=== PATIENT | female | born 1995 | race American Indian/Alaskan Native ===

== ENCOUNTER 2017-02-22 00:20 | Emergency (ER) | payer MEDICAID ==
[2017-02-22 00:32] VITALS: BP 102/69; PULSE 86; TEMP 98.9; O2SAT 98
--- NOTE | 2017-02-22 00:40 | C.PDOC ---
History Of Present Illness 22 year old female presents to the ER with a complaint of hives to the chest, arms, and upper back since yesterday. Denies known allergens, SOB, or chest tightness. Time Seen by Provider: 02/22/17 00:40 Chief Complaint (Nursing): Abnormal Skin Integrity History Per: Patient History/Exam Limitations: no limitations Onset/Duration Of Symptoms: Days Current Symptoms Are (Timing): Still Present Quality Of Symptoms: Other (Hives) Recent travel outside of the [place]: No Past Medical History Reviewed: Historical Data, Nursing Documentation, Vital Signs Vital Signs: Last Vital Signs Temp 98.9 F 02/22/17 00:30 Pulse 86 02/22/17 00:30 Resp 14 02/22/17 00:30 BP 102/69 02/22/17 00:30 Pulse Ox 98 02/22/17 00:56 - Medical History PMH: No Chronic Diseases Family History: States: Unknown Family Hx - Social History Hx Alcohol Use: No Hx Substance Use: No - Immunization History Hx Tetanus Toxoid Vaccination: No Hx Influenza Vaccination: No Hx Pneumococcal Vaccination: No Review Of Systems Respiratory: Negative for: Shortness of Breath, Wheezing, Other (Chest tightness ) Skin: Positive for: Rash (Hives) Physical Exam - Physical Exam Appears: Non-toxic, No Acute Distress Skin: Warm, Dry, Rash (Diffuse hives to upper extremities, chest, and back) Head: Atraumatic, Normacephalic Eye(s): bilateral: Normal Inspection Oral Mucosa: Moist Tongue: Normal Appearing, No Swelling Lips: Normal Appearing, No Swelling Throat: Normal, No Other (Swelling) Neck: Normal, Supple Chest: Symmetrical, No Tenderness Cardiovascular: Rhythm Regular Respiratory: Normal Breath Sounds, No Rales, No Rhonchi, No Wheezing Neurological/Psych: Oriented x3, Normal Speech ED Course And Treatment O2 Sat by Pulse Oximetry: 98 (Room air) Pulse Ox Interpretation: Normal Progress Note: Benadryl, pepcid, and prednisone administered. Patient reports improvement of rash, she is resting comfortably in no distress. Will discharge home with instructions to follow up with PMD. Disposition Counseled Patient/Family Regarding: Diagnosis, Need For Followup, Rx Given - Disposition Referrals: Keyur MG,MD Boubacar [Medical Doctor] - Disposition: HOME/ ROUTINE Disposition Time: 01:02 Condition: STABLE Additional Instructions: Take all meds as prescribed Follwo up with PMD Return to ER if difficulty breathing , facial or tongue swelling or worse Prescriptions: Cetirizine HCl [Zyrtec] 10 mg PO DAILY #14 capsule DiphenhydrAMINE [Benadryl] 50 mg PO HS #14 cap Famotidine [Pepcid] 20 mg PO DAILY #7 tab predniSONE [Prednisone] 40 mg PO DAILY #8 tab Instructions: Urticaria (ED) Forms: [employer] (Frisian) - Clinical Impression Clinical Impression: Urticaria - PA / TRIAL PARALEGAL / Resident Statement MD/DO has reviewed & agrees with the documentation as recorded. - Scribe Statement The provider has reviewed the documentation as recorded by the Scribarminda Romeo All medical record entries made by the Tamraibarminda were at my direction and personally dictated by me. I have reviewed the chart and agree that the record accurately reflects my personal performance of the history, physical exam, medical decision making, and the department course for this patient. I have also personally directed, reviewed, and agree with the discharge instructions and disposition.
[2017-02-22 01:08] VITALS: RESP 20
== END 2017-02-22 01:08 | disposition home or self-care (01) ==
LOC: C.ER 00:20
DX: L50.9 Urticaria, unspecified (principal)

== ENCOUNTER 2017-05-22 19:11 | Emergency (ER) | payer MEDICAID ==
[2017-05-22 19:27] VITALS: BP 123/75; PULSE 92; RESP 22; TEMP 97.9; O2SAT 98
[2017-05-22 19:43] LABS: HCG,QUALITATIVE URINE NEGATIVE (NEGATIVE)
[2017-05-22 19:46] LABS: SQUAMOUS EPITHIAL 6 /hpf (0-5); URINE BACTERIA FEW (<OCC); URINE BILIRUBIN NEGATIVE (NEGATIVE); URINE BLOOD 2+ (NEGATIVE); URINE CLARITY Hazy (Clear); URINE COLOR Yellow (YELLOW); URINE GLUCOSE (UA) NORMAL (Normal); URINE LEUKOCYTE ESTERASE 3+ Leu/uL (Negative); URINE PROTEIN NEGATIVE (NEGATIVE)
--- NOTE | 2017-05-22 20:12 | C.PDOC ---
History Of Present Illness 22 year old female presents to the ED for evaluation of a small painful lesion noted to her left flank area which she noticed around 3 days ago. Patient also reports increased urinary frequency. She denies fever, chills. Time Seen by Provider: 05/22/17 20:03 Chief Complaint (Nursing): Abdominal Pain History Per: Patient History/Exam Limitations: no limitations Onset/Duration Of Symptoms: Days Current Symptoms Are (Timing): Still Present Radiation Of Pain To:: Flank (left ) Quality Of Discomfort: "Pain" Associated Symptoms: Urinary Symptoms (urinary frequency ). denies: Fever, Chills Additional History Per: Patient Abnormal Vaginal Bleeding: No Past Medical History Reviewed: Historical Data, Nursing Documentation, Vital Signs Vital Signs: Last Vital Signs Temp 97.9 F 05/22/17 19:24 Pulse 92 H 05/22/17 19:24 Resp 22 05/22/17 19:24 BP 123/75 05/22/17 19:24 Pulse Ox 98 05/22/17 21:37 - Medical History PMH: No Chronic Diseases Surgical History: No Surg Hx Family History: States: Unknown Family Hx - Social History Hx Alcohol Use: No Hx Substance Use: No - Immunization History Hx Tetanus Toxoid Vaccination: No Hx Influenza Vaccination: No Hx Pneumococcal Vaccination: No Review Of Systems Constitutional: Negative for: Fever, Chills Genitourinary: Positive for: Frequency Skin: Positive for: Other (small painful lesion to left flank area ) Physical Exam - Physical Exam Appears: Non-toxic, No Acute Distress, Other (morbidly obese ) Skin: Normal Color, Warm, Dry Head: Atraumatic, Normacephalic Eye(s): bilateral: Normal Inspection Oral Mucosa: Moist Neck: Supple Chest: Symmetrical, No Deformity, No Tenderness Cardiovascular: Rhythm Regular, No Murmur Respiratory: Normal Breath Sounds, No Rales, No Rhonchi, No Wheezing Gastrointestinal/Abdominal: Soft, No Tenderness, No Guarding, No Rebound, Other (small furuncle in abdominal fold of left flank area ) Extremity: Normal ROM, Capillary Refill (less than 2 seconds ) Neurological/Psych: Oriented x3, Normal Speech, Normal Cognition Gait: Steady ED Course And Treatment - Laboratory Results Lab Interpretation: Abnormal (UA 36 WBC's) Urine POC: Negative O2 Sat by Pulse Oximetry: 98 (on RA) Pulse Ox Interpretation: Normal Progress Note: UA ordered and reviewed. Keflex PO administered. Medical Decision Making Medical Decision Making: small furuncle L posterior abd fat fold, no fluctuance. Mild UTI Preg neg. Disposition Doctor Will See Patient In The: Office Counseled Patient/Family Regarding: Studies Performed, Diagnosis - Disposition Referrals: [facility] [Outside] Disposition: HOME/ ROUTINE Disposition Time: 20:11 Condition: GOOD Additional Instructions: warm compresses and small amount of puss will leak out. keep folds of fat dry to lessen changes of infection in those folds. continue keflex 500 mg (antibiotic) twice a day for 3 more days- will treat the UTI AND the minor skin infection. Follow-up in our outpatient [facility] Prescriptions: Cephalexin [Keflex] 500 mg PO BID #7 capsule Instructions: Urinary Tract Infections in Adults, Boil (DC) Forms: [employer] (Estonian) - Clinical Impression Clinical Impression: Furuncle of abdominal wall, UTI (urinary tract infection) - Scribe Statement The provider has reviewed the documentation as recorded by the Scribe (Shweta Scott) Provider Attestation: All medical record entries made by the Scribe were at my direction and personally dictated by me. I have reviewed the chart and agree that the record accurately reflects my personal performance of the history, physical exam, medical decision making, and the department course for this patient. I have also personally directed, reviewed, and agree with the discharge instructions and disposition.
== END 2017-05-22 20:37 | disposition home or self-care (01) ==
LOC: C.ER 19:11
DX: N39.0 Urinary tract infection, site not specified (principal); L02.221 Furuncle of abdominal wall

== ENCOUNTER 2017-07-10 19:07 | Emergency (ER) | payer MEDICAID ==
[2017-07-10 19:26] VITALS: TEMP 98.2
--- NOTE | 2017-07-10 19:57 | C.PDOC ---
History Of Present Illness 22 y/o morbidly obese female c/o vaginal irritation and foul smelling discharge for a few days. denies dyspareunia, denies urinary frequency and urgency and dysuria. denies abdominal pain. no n/v/d. no fever or chills. pt sexually active, uses condoms most of the time. no hx sti. (Mayela Wynn) History Per: Patient History/Exam Limitations: no limitations Onset/Duration Of Symptoms: Days (3) Current Symptoms Are (Timing): Still Present Severity: Mild Quality Of Discomfort: "Pain" Associated Symptoms: denies: Fever, Chills, Nausea, Vomiting, Urinary Symptoms Abnormal Vaginal Bleeding: No Last Menstral Period: 06/17/17 : 0 Time Seen by Provider: 07/10/17 19:27 Chief Complaint (Nursing): Female Genitourinary Past Medical History Reviewed: Historical Data, Nursing Documentation, Vital Signs - Medical History PMH: No Chronic Diseases Surgical History: No Surg Hx Family History: States: Unknown Family Hx - Social History Hx Tobacco Use: No Hx Alcohol Use: No Hx Substance Use: No - Immunization History Hx Tetanus Toxoid Vaccination: No Hx Influenza Vaccination: No Hx Pneumococcal Vaccination: No Vital Signs: Last Vital Signs Temp 98.2 F 07/10/17 19:22 Pulse 78 07/10/17 21:06 Resp 16 07/10/17 21:06 BP 136/86 07/10/17 21:06 Pulse Ox 98 07/10/17 21:06 Review Of Systems Constitutional: Negative for: Fever, Chills Gastrointestinal: Negative for: Nausea, Vomiting Genitourinary: Positive for: Vaginal Discharge, Pelvic Pain (vaginal irritation) . Negative for: Dysuria, Frequency Physical Exam - Physical Exam Appears: Non-toxic, No Acute Distress, Other (morbidly obese) Skin: Warm, Dry Head: Atraumatic, Normacephalic Cardiovascular: Rhythm Regular, No Murmur Respiratory: No Decreased Breath Sounds, No Wheezing Gastrointestinal/Abdominal: Bowel Sounds, Soft, No Tenderness Pelvic: Normal Bimanual Exam, Vaginal Discharge, No Cervical Motion Tenderness, No Cervix Open, No Adnexal Tenderness, Other (cervix not visualized due to pt's body habitus, whitish beige discharge noted in vault. one 0.5 cm area of ulcerated non tender skin on left labia majora. chaperoned by RN Geoffrey) ED Course And Treatment O2 Sat by Pulse Oximetry: 100 Medical Decision Making Medical Decision Making: pt with vaginal discharge and irritation x 3 days, no urinary symptoms. given recent unprotected sex, will tx for sti. rpr sent due to open non tender lesion. 849 pm pt seen in ED in May for urinary symptoms, did not take antibiotics; pt has 288 wbc in urine today with hematuria and +3LE; possibly from discharge, however, pt had ecoli in urine last time, d/c with cipro. . (Mayela Wynn ) Disposition Counseled Patient/Family Regarding: Studies Performed, Diagnosis, Need For Followup, Rx Given - Disposition Disposition Time: 20:55 - Disposition Referrals: [facility] [Outside] Disposition: HOME/ ROUTINE Condition: GOOD Additional Instructions: Please take antibiotics until completed. Drink increased fluids. 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 Recommend no sexual activity until test results back. If positive, your partner needs treatment as well. Return to ER for any worsening symptoms. Prescriptions: Ciprofloxacin [Cipro] 500 mg PO BID #6 tab Instructions: Urinary Tract Infection, Adult (DC), Vaginitis Forms: [employer] (Cape Verdean), General Discharge Instructions - Clinical Impression Clinical Impression: UTI (urinary tract infection), Vaginitis
[2017-07-10 19:59] LABS: SQUAMOUS EPITHIAL 11 /hpf (0-5); URINE BILIRUBIN NEGATIVE (NEGATIVE); URINE CLARITY Hazy (Clear); URINE COLOR Yellow (YELLOW); URINE GLUCOSE (UA) NORMAL (Normal); URINE LEUKOCYTE ESTERASE 3+ Leu/uL (Negative); URINE PROTEIN 1+ mg/dL (NEGATIVE)
[2017-07-10 20:00] LABS: URINE BLOOD 2+ (NEGATIVE)
[2017-07-10 21:06] VITALS: BP 136/86; PULSE 78; RESP 16; O2SAT 98
== END 2017-07-10 21:05 | disposition home or self-care (01) ==
LOC: C.ER 19:07
DX: N39.0 Urinary tract infection, site not specified (principal); N76.0 Acute vaginitis